=== PATIENT | female | born 1955 | race Two or more races ===

== ENCOUNTER 2017-02-23 22:52 | Emergency (ER) | payer OTHER ==
[~2017-02-23 22:52] MED LIST: ALBUTEROL 0.5ML INH; ALBUTEROL17 GM INH; AMITRYPTYLINE PO; AMOXICILLIN PO; ARISTOCORT A 0.15 G1 TOP; ASPIRIN ENTERI325 M1 PO; ASPIRIN PO; ASPIRIN325 M1; ASPIRIN81 MG PO; ASPIRINEC PO; ATENOLOL PO; BENTYL10 MG PO; BIAXIN PO; CIPRO PO; CLONIDINE HCL0.1 MG PO; COMBIVENT U/D3 M2 INH; COMBIVENT14.7 GM INH; CRESTOR PO; DOXYCYCLINE PO; DUONEB 2.5-0.5 M3 ML NEB; ECOTRIN325 MG PO; FERRO-TIME325 MG PO; FLAGYL PO; FLEXERIL PO; FLEXERIL10 MG PO; GABAPENTIN300 M2 PO; GLUCOPHAGE500 MG PO; GLUMETZA1000 MG/BO PO; INVOKANA100 MG PO; K-DUR20 ME1 PO; KCL PO; KEFLEX PO; KETOPROFEN PO; LEVAQUIN PO; LEVAQUIN750 MG PO; LISINOPRIL PO; LOPRESSOR PO; LORTAB 10-5001 EACH PO; LORTAB 5/500 TA1 TA1 PO; MEDROL PO; METFORMIN HCL1000 M1 PO; METFORMIN PO; METHIMAZOLE10 MG PO; METOPROLOL TART25 MG PO; METRONIDAZOLE PO; MIRALAX17 GM PO; MOTRIN400 MG PO; NAPROSYN500 MG PO; NASONEB NASAL1 EACH MC; NEURONTIN300 MG PO; NIFEDIAC CC60 MG PO; NIFEDICAL PO; NIZORAL 2% CREA15 GM EXT; NO MEDICATIONS; NORCO 5/325 TAB1 TAB PO; NORVASC PO; NORVASC10 MG PO; OMEPRAZOLE40 M1 PO; OMEPRAZOLE40 MG PO; OS-CAL 500500 MG PO; PANTOPRAZOLE SO40 MG PO; PREDNISONE PO; PREDNISONE1 MG PO; PREDNISONE10 MG/DOSE PO; PRILOSEC PO; PRILOSEC40 MG PO; PRINIVIL40 MG PO; Q-PAP325 MG PO; QVAR7.3 G1 IH; ROBITUSSIN A-C S5 ML PO; SIMVASTATIN40 MG PO; SYMBICORT INH; TOPROL XL50 MG PO; VICODIN 5/500 T1 TAB PO; ZESTRIL40 MG PO; ZITHROMAX PO; ZOCOR PO; ZOCOR20 MG PO
[2017-02-23] MEDS ORDERED: HYDROCODON-ACE1 EAC7 PO (23:24)
== END 2017-02-23 23:31 | disposition home or self-care (01) ==
LOC: SED 22:52
DX: E11.40 Type 2 diabetes mellitus with diabetic neuropathy, unspecified (principal); J44.9 Chronic obstructive pulmonary disease, unspecified; F17.210 Nicotine dependence, cigarettes, uncomplicated; Z79.899 Other long term (current) drug therapy
CPT/HCPCS: 99283

== ENCOUNTER 2017-03-07 13:48 | Emergency (ER) | payer OTHER ==
--- NOTE | ~2017-03-07 | CR63 ---
[facility] A Service of [facility] & [facility] RADIOLOGY TEXT RESULTS PATIENT: CRISTIN ALEXANDER LOCATION: CFTX : 55 UNIT #: [id number] AGE: [address]: Ninfa Marcos SEX: F ORDER DR: [id number] [facility] [place], [place] [address] [id number] MR#: [id number] #: [id number] NAME: CRISTIN ALEXANDER : 1955 SEX: F STUDY DATE/TIME: 03/07/2017 UNIT: CFIL ROOM: STUDY DESCRIPTION: CR Chest 2 View Attending Physician: Ninfa Marcos P.A.-C. Ordering Physician: Ninfa Marcos P.A.-C. Primary Care Physician: [facility], MEDICAL IMAGING REPORT This report is preliminary unless electronic signature is present EXAM Chest, 2 views, 03/07/2017, 1329 hours. HISTORY 62-year-old woman with cough and left leg pain today. COMPARISON 01/11/2017 FINDINGS Upright PA and lateral views of the chest demonstrate slightly low lung volumes. Cardiac, mediastinal, and hilar contours are stable. There is patchy airspace density in the right middle lobe, concerning for pneumonia, less likely atelectasis. This has increased from 01/11/2017. There are no effusions. IMPRESSION Lower lung volumes than on the comparison study. There is patchy airspace density in the right middle lobe concerning for pneumonia, less likely atelectasis. There is no pleural effusion. Follow-up chest film post treatment to complete resolution is recommended. STAT * RESULT Dictated by... Lien Tovar M.D. THIS IS AN ELECTRONICALLY VERIFIED REPORT Lien Tovar M.D. at 03/07/2017 2:30 PM PATRICK/[facility] A Service of [facility] & [facility] RADIOLOGY TEXT RESULTS PATIENT: CRISTIN ALEXANDER LOCATION: [facility] : 55 UNIT #: [id number] AGE: [address]: Ninfa Marcos SEX: F ORDER DR: TD: 03/07/2017 14:05 JOB #: [id number] MEDICAL IMAGING REPORT Page 1 of 1 COPY
[~2017-03-07 13:48] MED LIST changes: +HYDROCODON-ACE1 EAC7 PO
== END 2017-03-07 14:11 | disposition home or self-care (01) ==
LOC: CFTX 13:48
DX: M54.16 Radiculopathy, lumbar region (principal); J18.1 Lobar pneumonia, unspecified organism; E11.65 Type 2 diabetes mellitus with hyperglycemia; J44.9 Chronic obstructive pulmonary disease, unspecified; J45.909 Unspecified asthma, uncomplicated; K21.9 Gastro-esophageal reflux disease without esophagitis; M19.90 Unspecified osteoarthritis, unspecified site; F17.200 Nicotine dependence, unspecified, uncomplicated; Z79.899 Other long term (current) drug therapy; Z79.82 Long term (current) use of aspirin
CPT/HCPCS: 71020; 96372; 99283; J0696; J1885